=== PATIENT | male | born 1940 | race Caucasian/White ===

== ENCOUNTER 2020-05-01 21:22 | Observation (INO) ==
[2020-05-01 22:19] LABS: Basophils % 0.3 %; Eosinophils % 0.3 %; Hemoglobin 8.4 g/dL (12.9-16.9); Immature Granulocytes % 1.8 % (0-4); Lymphocytes % 19.7 %; Mean Corpuscular HGB Conc 32.3 g/dL (31.6-35.5); Mean Corpuscular Hemoglobin 32.4 pg (28.0-33.3); Mean Corpuscular Volume 100.4 fL (83.0-100.0); Mean Platelet Volume 10.2 fL (9.4-12.4); Monocytes # 0.7 K/mcL (0.0-1.3); Monocytes % 6.4 %; Neutrophils # 7.3 K/mcL (1.6-8.9); Nucleated Red Blood Cells 0.3 /100 WBC (0); Platelet Count 240 K/mcL (140-400); Red Blood Count 2.59 M/mcL (4.19-5.50); Red Cell Distribution Width 15.8 % (11.5-14.5); Segmented Neutrophils % 71.5 %; White Blood Count 10.2 K/mcL (4.3-11.1)
[2020-05-01 22:44] LABS: BUN/Creatinine Ratio 26 (6-26); Blood Urea Nitrogen 30 mg/dL (8-23); Calcium 8.9 mg/dL (8.6-10.3); Carbon Dioxide 22 mEq/L (23-29); Chloride 105 mEq/L (98-107); Glucose 117 mg/dL (70-105); Magnesium 1.7 mg/dL (1.6-2.6); Osmolality,Calculated 289 (280-300); Potassium 4.2 mEq/L (3.5-5.1); Sodium 136 mEq/L (136-145); eGFR For African Americans > 60 (> 60); eGFR For Non-African Americans > 60 (> 60)
[2020-05-01 22:56] LABS: Troponin I 0.04 ng/mL (< 0.04)
[2020-05-02] MEDS ORDERED: Naloxone 0.4 MG/ML INJ IVP PRN (00:58)
[2020-05-02] MEDS ORDERED: *HR* Promethazine 25 MG/ML VIAL IM PRN (00:58)
[2020-05-02] MEDS ORDERED: Ondansetron 4 MG/2 ML VIAL IVP PRN (00:58)
[2020-05-02] MEDS ORDERED: Perflutren Lipid Microsphere 1.3 ML in 0.9 % Sodium Chloride 8.7 ML IVP PRN (01:00)
[2020-05-02] MEDS ORDERED: Ipratropium 1 PUFF INHALER IH PRN (01:07)
[2020-05-02] MEDS ORDERED: *HR* Labetalol 20 MG/4 ML SYRINGE IVP PRN (02:10)
[2020-05-02] MEDS ORDERED: *HR* Metoprolol 5 MG/5 ML VIAL IVP ONE (02:36)
[2020-05-02] MEDS ORDERED: *HR* Heparin 5,000 UNIT/ML VIAL IVP ONE (02:40)
[2020-05-02] MEDS ORDERED: *HR* Heparin 5,000 UNIT/ML VIAL IVP PRN ×2 (02:40)
[2020-05-02] MEDS ORDERED: Heparin 25,000UNIT/250ML 1/2NS 25,000 UNIT/250 ML IV.SOLN IVC SCH (02:45)
[2020-05-02 04:52] LABS: Basophils % 0.3 %; Eosinophils % 0.2 %; Hematocrit 27.6 % (37.5-50.1); Hemoglobin 8.6 g/dL (12.9-16.9); Lymphocytes # 1.7 K/mcL (0.6-4.6); Lymphocytes % 16.4 %; Mean Corpuscular HGB Conc 31.2 g/dL (31.6-35.5); Mean Corpuscular Hemoglobin 31.4 pg (28.0-33.3); Mean Corpuscular Volume 100.7 fL (83.0-100.0); Mean Platelet Volume 11.3 fL (9.4-12.4); Monocytes # 0.7 K/mcL (0.0-1.3); Monocytes % 6.8 %; Neutrophils # 7.8 K/mcL (1.6-8.9); Nucleated Red Blood Cells 0.2 /100 WBC (0); Platelet Count 263 K/mcL (140-400); Red Blood Count 2.74 M/mcL (4.19-5.50); Red Cell Distribution Width 15.9 % (11.5-14.5); Segmented Neutrophils % 74.3 %; White Blood Count 10.5 K/mcL (4.3-11.1)
[2020-05-02 05:00] LABS: INR 1.2; Prothrombin Time 14.2 Seconds (9.4-12.1)
[2020-05-02 05:18] LABS: % Iron Saturation 10 % (20-55); Iron 27 mcg/dL (65-175); Transferrin 186 mg/dL (203-362)
[2020-05-02 05:24] LABS: Alanine Aminotransferase 13 Units/L (7-52); Albumin 3.9 g/dL (3.5-5.7); Albumin/Globulin Ratio 1.6 (1.1-2.2); Alkaline Phosphatase 79 Units/L (34-104); Aspartate Amino Transferase 28 Units/L (13-39); BUN/Creatinine Ratio 26 (6-26); Bilirubin,Total 3.9 mg/dL (0.3-1.0); Blood Urea Nitrogen 27 mg/dL (8-23); C-Reactive Protein 38 mg/L (Less than 10); Calcium 8.8 mg/dL (8.6-10.3); Carbon Dioxide 22 mEq/L (23-29); Chloride 104 mEq/L (98-107); Chol/HDL Ratio 2.5 (0-4.9); Cholesterol 100 mg/dL (< 200); Globulin 2.5 g/dL (2.4-3.5); Glucose 112 mg/dL (70-105); HDL Cholesterol 40 mg/dL (40-59); LDL Cholesterol,Calculated 44 mg/dL (< 100); Lactate Dehydrogenase 397 Units/L (140-271); Magnesium 2.1 mg/dL (1.6-2.6); Osmolality,Calculated 286 (280-300); Potassium 3.9 mEq/L (3.5-5.1); Sodium 135 mEq/L (136-145); Total Protein 6.4 g/dL (6.4-8.9); Triglycerides 78 mg/dL (< 150); Troponin I 0.04 ng/mL (< 0.04); eGFR For African Americans > 60 (> 60); eGFR For Non-African Americans > 60 (> 60)
[2020-05-02 05:34] LABS: Ferritin > 1500 ng/mL (20-250)
[2020-05-02 05:40] LABS: Folate 13.7 ng/mL (3.0-16.0)
[2020-05-02] MEDS ORDERED: *HR* Enoxaparin 80 MG/0.8 ML SYRINGE SQ SCH (06:00)
[2020-05-02] MEDS ORDERED: *HR* Enoxaparin 40 MG/0.4 ML SYRINGE SQ SCH (06:00)
[2020-05-02] MEDS: Acetaminophen 325 MG TABLET PO PRN (06:36)
[2020-05-02] MEDS: cefTRIAXone 1,000 MG in Water for inj. (sterile) 10 ML IVP SCH (08:01)
[2020-05-02] MEDS: Dexamethasone Sodium Phos/PF 10 MG/ML VIAL IVP SCH (08:02)
[2020-05-02] MEDS ORDERED: Metoprolol XL (24 HR) Succ 50 MG TAB.ER.24H PO SCH (09:00)
[2020-05-02] MEDS: *HR* Enoxaparin 80 MG/0.8 ML SYRINGE SQ SCH (10:52)
[2020-05-02] MEDS ORDERED: Metoprolol XL (24 HR) Succ 25 MG TAB.ER.24H PO ONE (12:15)
[2020-05-02] MEDS: Aspirin Enteric Coated 81 MG Tablet PO SCH (14:27)
[2020-05-02] MEDS: Famotidine 20 MG TABLET PO SCH (19:35)
[2020-05-02] MEDS ORDERED: Haloperidol Lactate 5 MG/ML VIAL IM ONE (23:00)
[2020-05-03] MEDS: *HR* Enoxaparin 80 MG/0.8 ML SYRINGE SQ SCH ×3 (00:13→20:29)
[2020-05-03] MEDS ORDERED: *HR* LORazepam 2 MG/ML VIAL IVP ONE (03:11)
[2020-05-03] MEDS ORDERED: *HR* LORazepam 2 MG/ML VIAL ONE (03:25)
[2020-05-03 05:22] LABS: Hematocrit 24.2 % (37.5-50.1); Hemoglobin 7.9 g/dL (12.9-16.9); Mean Corpuscular HGB Conc 32.6 g/dL (31.6-35.5); Mean Corpuscular Hemoglobin 32.2 pg (28.0-33.3); Mean Corpuscular Volume 98.8 fL (83.0-100.0); Mean Platelet Volume 10.5 fL (9.4-12.4); Platelet Count 286 K/mcL (140-400); Red Blood Count 2.45 M/mcL (4.19-5.50); Red Cell Distribution Width 15.9 % (11.5-14.5); White Blood Count 10.3 K/mcL (4.3-11.1)
[2020-05-03 05:40] LABS: BUN/Creatinine Ratio 30 (6-26); Blood Urea Nitrogen 34 mg/dL (8-23); Calcium 8.6 mg/dL (8.6-10.3); Carbon Dioxide 21 mEq/L (23-29); Chloride 105 mEq/L (98-107); Glucose 119 mg/dL (70-105); Magnesium 1.9 mg/dL (1.6-2.6); Osmolality,Calculated 287 (280-300); Potassium 4.5 mEq/L (3.5-5.1); Sodium 134 mEq/L (136-145); eGFR For African Americans > 60 (> 60); eGFR For Non-African Americans > 60 (> 60)
[2020-05-03] MEDS: cefTRIAXone 1,000 MG in Water for inj. (sterile) 10 ML IVP SCH (10:21)
[2020-05-03] MEDS: Dexamethasone Sodium Phos/PF 10 MG/ML VIAL IVP SCH (10:22)
[2020-05-03] MEDS: Metoprolol XL (24 HR) Succ 50 MG TAB.ER.24H PO SCH (10:22)
[2020-05-03] MEDS: Aspirin Enteric Coated 81 MG Tablet PO SCH (10:22)
[2020-05-03] MEDS: Famotidine 20 MG TABLET PO SCH (20:29)
[2020-05-03] MEDS ORDERED: Melatonin 3 MG TABLET PO PRN (21:00)
[2020-05-03] MEDS: Acetaminophen 325 MG TABLET PO PRN (21:05)
[2020-05-03] MEDS ORDERED: QUEtiapine Fumarate 25 MG TABLET PO SCH (22:45)
[2020-05-04 07:03] VITALS: BP 125/70
[2020-05-04] MEDS: cefTRIAXone 1,000 MG in Water for inj. (sterile) 10 ML IVP SCH (09:26)
[2020-05-04] MEDS: *HR* Enoxaparin 80 MG/0.8 ML SYRINGE SQ SCH ×2 (09:26→10:48)
[2020-05-04] MEDS: Metoprolol XL (24 HR) Succ 50 MG TAB.ER.24H PO SCH (09:27)
[2020-05-04] MEDS: Dexamethasone Sodium Phos/PF 10 MG/ML VIAL IVP SCH (09:27)
[2020-05-04] MEDS: Aspirin Enteric Coated 81 MG Tablet PO SCH (09:27)
== END 2020-05-04 12:59 | disposition home health service (06) ==
LOC: 2NENU 21:22 → EMEROOARM 21:22 → 2NENU 05-02 01:20 → SUATTDRO 05-02 01:26
PROVIDERS: ADMIT Internal Medicine; ATTEND Internal Medicine

== ENCOUNTER 2020-05-15 11:45 | Inpatient (IN) ==
[2020-05-15 12:36] LABS: Basophils % 0.2 %; Eosinophils # 0.2 K/mcL (0.0-0.6); Eosinophils % 0.7 %; Hematocrit 19.1 % (37.5-50.1); Hemoglobin 6.3 g/dL (12.9-16.9); Immature Granulocytes % 5.6 % (0-4); Lymphocytes % 12.5 %; Mean Corpuscular Hemoglobin 32.8 pg (28.0-33.3); Mean Corpuscular Volume 99.5 fL (83.0-100.0); Mean Platelet Volume 9.7 fL (9.4-12.4); Monocytes # 1.3 K/mcL (0.0-1.3); Monocytes % 5.3 %; Nucleated Red Blood Cells 1.2 /100 WBC (0); Platelet Count 515 K/mcL (140-400); Red Blood Count 1.92 M/mcL (4.19-5.50); Red Cell Distribution Width 20.5 % (11.5-14.5); Segmented Neutrophils % 75.7 %; White Blood Count 24.3 K/mcL (4.3-11.1)
[2020-05-15 12:40] LABS: INR 1.2; Prothrombin Time 13.4 Seconds (9.4-12.1)
[2020-05-15 12:42] LABS: Activated Partial Thrombo Time 23.6 Seconds (26.0-36.0)
[2020-05-15 12:43] LABS: Basophils # 0.1 K/mcL (0.0-0.2); Neutrophils # 18.4 K/mcL (1.6-8.9)
[2020-05-15 13:17] LABS: Alanine Aminotransferase 15 Units/L (7-52); Albumin 3.3 g/dL (3.5-5.7); Albumin/Globulin Ratio 1.3 (1.1-2.2); Alkaline Phosphatase 100 Units/L (34-104); Aspartate Amino Transferase 30 Units/L (13-39); BUN/Creatinine Ratio 16 (6-26); Bilirubin,Direct 0.7 mg/dL (0.0-0.2); Bilirubin,Indirect 2.8 mg/dL (0.0-1.0); Bilirubin,Total 3.5 mg/dL (0.3-1.0); Blood Urea Nitrogen 21 mg/dL (8-23); C-Reactive Protein 18 mg/L (Less than 10); Calcium 8.6 mg/dL (8.6-10.3); Carbon Dioxide 20 mEq/L (23-29); Chloride 104 mEq/L (98-107); Ferritin 1291 ng/mL (20-250); Globulin 2.6 g/dL (2.4-3.5); Glucose 111 mg/dL (70-105); Magnesium 2.2 mg/dL (1.6-2.6); Osmolality,Calculated 284 (280-300); Phosphorous 3.9 mg/dL (2.7-4.5); Potassium 4.8 mEq/L (3.5-5.1); Sodium 135 mEq/L (136-145); Total Protein 5.9 g/dL (6.4-8.9); Troponin I 0.06 ng/mL (< 0.04); eGFR For African Americans > 60 (> 60); eGFR For Non-African Americans 51 (> 60)
[2020-05-15] MEDS ORDERED: Azithromycin 500 MG in 0.9 % Sodium Chloride 250 ML IVPB ONE (13:38)
[2020-05-15] MEDS ORDERED: Cefepime HCl 2,000 MG in Water for inj. (sterile) 20 ML IVP STA (13:38)
[2020-05-15] MEDS ORDERED: Vancomycin 1,250 MG/262.5 ML IV.SOLN IVPB ONE (13:38)
[2020-05-15 13:39] LABS: Platelet Estimate Increased (Normal)
[2020-05-15 13:40] LABS: Anisocytosis 1+ (Not Present)
[2020-05-15 13:41] LABS: Hypochromasia Present (Not Present); Poikilocytosis 1+ (Not Present); Polychromasia 1+ (Not Present)
[2020-05-15] MEDS ORDERED: 0.9 % Sodium Chloride 1,000 ML IVC ONE (13:56)
[2020-05-15 13:59] LABS: Adenovirus Not Detected (Not Detect); Coronavirus 229E Not Detected (Not Detect); Coronavirus HKU1 Not Detected (Not Detect); Coronavirus NL63 Not Detected (Not Detect); Coronavirus OC43 Not Detected (Not Detect)
[2020-05-15 14:00] LABS: Bordetella Pertussis Not Detected (Not Detect); Chlamydophila pneumoniae Not Detected (Not Detect); Human Metapneumovirus Not Detected (Not Detect); Human Rhinovirus/Enterovirus Not Detected (Not Detect); Influenza A Subtype 2009 H1 Not Detected (Not Detect); Influenza B Not Detected (Not Detect); Mycoplasma pneumoniae Not Detected (Not Detect); Parainfluenza Virus 1 Not Detected (Not Detect); Parainfluenza Virus 2 Not Detected (Not Detect); Parainfluenza Virus 3 Not Detected (Not Detect); Parainfluenza Virus 4 Not Detected (Not Detect); Respiratory Syncytial Virus Not Detected (Not Detect); SARS-CoV-2 DETECTED (Not Detect)
[2020-05-15] MEDS ORDERED: *HR* LORazepam 2 MG/ML VIAL IM STA (15:27)
[2020-05-15] MEDS ORDERED: *HR* LORazepam 2 MG/ML VIAL ONE (15:37)
[2020-05-15] MEDS ORDERED: Haloperidol Lactate 5 MG/ML VIAL ONE (15:38)
[2020-05-15] MEDS ORDERED: *HR* LORazepam 2 MG/ML VIAL IVP ONE (15:44)
[2020-05-15] MEDS ORDERED: Haloperidol Lactate 5 MG/ML VIAL IVP ONE (15:45)
[2020-05-15] MEDS ORDERED: Ondansetron 4 MG/2 ML VIAL IVP PRN (17:20)
[2020-05-15] MEDS: Dexmedetomidine HCl 400 MCG/100 ML MLS IVC SCH (17:35)
[2020-05-15] MEDS ORDERED: 0.9 % Sodium Chloride 500 ML IVC ONE (19:42)
[2020-05-15] MEDS ORDERED: 0.9 % Sodium Chloride 500 ML ONE (19:44)
[2020-05-15] MEDS: QUEtiapine Fumarate 25 MG TABLET PO SCH (21:00)
[2020-05-16 05:42] LABS: Basophils # 0.1 K/mcL (0.0-0.2); Basophils % 0.3 %; Eosinophils # 0.1 K/mcL (0.0-0.6); Eosinophils % 0.7 %; Hematocrit 23.5 % (37.5-50.1); Hemoglobin 7.7 g/dL (12.9-16.9); Immature Granulocytes % 4.4 % (0-4); Lymphocytes # 1.9 K/mcL (0.6-4.6); Mean Corpuscular HGB Conc 32.8 g/dL (31.6-35.5); Mean Corpuscular Hemoglobin 34.1 pg (28.0-33.3); Mean Platelet Volume 10.1 fL (9.4-12.4); Monocytes % 5.4 %; Neutrophils # 15.1 K/mcL (1.6-8.9); Nucleated Red Blood Cells 1.2 /100 WBC (0); Platelet Count 287 K/mcL (140-400); Red Blood Count 2.26 M/mcL (4.19-5.50); Red Cell Distribution Width 23.6 % (11.5-14.5); Segmented Neutrophils % 79.2 %; White Blood Count 19.1 K/mcL (4.3-11.1)
[2020-05-16 08:27] LABS: BUN/Creatinine Ratio 16 (6-26); Blood Urea Nitrogen 22 mg/dL (8-23); Calcium 8.5 mg/dL (8.6-10.3); Carbon Dioxide 20 mEq/L (23-29); Chloride 108 mEq/L (98-107); Glucose 106 mg/dL (70-105); Magnesium 2.1 mg/dL (1.6-2.6); Osmolality,Calculated 290 (280-300); Potassium 4.4 mEq/L (3.5-5.1); Sodium 138 mEq/L (136-145); eGFR For African Americans > 60 (> 60); eGFR For Non-African Americans 50 (> 60)
[2020-05-16] MEDS: Acetaminophen 325 MG TABLET PO PRN ×2 (11:43→20:45)
[2020-05-16] MEDS: QUEtiapine Fumarate 25 MG TABLET PO SCH (20:45)
[2020-05-16] MEDS: Dexmedetomidine HCl 400 MCG/100 ML MLS IVC SCH (23:58)
[2020-05-17 01:55] LABS: Hematocrit 19.3 % (37.5-50.1); Hemoglobin 6.6 g/dL (12.9-16.9); Mean Corpuscular HGB Conc 34.2 g/dL (31.6-35.5); Mean Corpuscular Hemoglobin 34.7 pg (28.0-33.3); Mean Corpuscular Volume 101.6 fL (83.0-100.0); Mean Platelet Volume 9.4 fL (9.4-12.4); Platelet Count 376 K/mcL (140-400); Red Cell Distribution Width 23.4 % (11.5-14.5); White Blood Count 17.1 K/mcL (4.3-11.1)
[2020-05-17 02:10] LABS: Albumin 2.6 g/dL (3.5-5.7); Albumin/Globulin Ratio 1.2 (1.1-2.2); Bilirubin,Direct 0.7 mg/dL (0.0-0.2); Bilirubin,Indirect 2.7 mg/dL (0.0-1.0); Bilirubin,Total 3.4 mg/dL (0.3-1.0); Calcium 7.9 mg/dL (8.6-10.3); Globulin 2.1 g/dL (2.4-3.5); Potassium 3.7 mEq/L (3.5-5.1); Total Protein 4.7 g/dL (6.4-8.9)
[2020-05-17] MEDS ORDERED: 0.9 % Sodium Chloride 250 ML ONE (10:01)
[2020-05-17] MEDS: Acetaminophen 325 MG TABLET PO PRN (14:00)
[2020-05-17] MEDS: haloperidoL 1 MG TABLET PO SCH ×3 (14:17→20:05)
[2020-05-17] MEDS: Pantoprazole 40 MG VIAL IVP SCH (17:45)
[2020-05-17] MEDS: Metoprolol XL (24 HR) Succ 50 MG TAB.ER.24H PO SCH (20:05)
[2020-05-17] MEDS: QUEtiapine Fumarate 25 MG TABLET PO SCH (20:05)
[2020-05-17 20:41] LABS: Immature Reticulocyte % 53.4 % (11.0-38.0); Retculocyte # 0.18 M/mcL (0.05-0.10); Reticulocyte % 9.9 % (1.6-2.8)
[2020-05-18] MEDS: Pantoprazole 40 MG VIAL IVP SCH (04:54)
[2020-05-18 06:00] LABS: INR 1.2; Prothrombin Time 14.2 Seconds (9.4-12.1)
[2020-05-18 06:21] LABS: Hematocrit 27.9 % (37.5-50.1); Hemoglobin 9.1 g/dL (12.9-16.9); Mean Corpuscular HGB Conc 32.6 g/dL (31.6-35.5); Mean Corpuscular Hemoglobin 34.9 pg (28.0-33.3); Mean Corpuscular Volume 106.9 fL (83.0-100.0); Mean Platelet Volume 9.6 fL (9.4-12.4); Platelet Count 267 K/mcL (140-400); Red Blood Count 2.61 M/mcL (4.19-5.50); Red Cell Distribution Width 25.5 % (11.5-14.5); White Blood Count 12.7 K/mcL (4.3-11.1)
[2020-05-18] MEDS: Metoprolol XL (24 HR) Succ 50 MG TAB.ER.24H PO SCH (08:34)
[2020-05-18] MEDS: haloperidoL 1 MG TABLET PO SCH ×4 (08:34→20:31)
[2020-05-18 09:46] LABS: Alanine Aminotransferase 25 Units/L (7-52); Albumin 3.5 g/dL (3.5-5.7); Albumin/Globulin Ratio 1.3 (1.1-2.2); Alkaline Phosphatase 97 Units/L (34-104); Aspartate Amino Transferase 70 Units/L (13-39); BUN/Creatinine Ratio 13 (6-26); Bilirubin,Direct 0.6 mg/dL (0.0-0.2); Bilirubin,Indirect 3.6 mg/dL (0.0-1.0); Bilirubin,Total 4.2 mg/dL (0.3-1.0); Blood Urea Nitrogen 17 mg/dL (8-23); Calcium 8.5 mg/dL (8.6-10.3); Carbon Dioxide 20 mEq/L (23-29); Chloride 109 mEq/L (98-107); Globulin 2.8 g/dL (2.4-3.5); Glucose 110 mg/dL (70-105); Magnesium 2.3 mg/dL (1.6-2.6); Osmolality,Calculated 284 (280-300); Phosphorous 3.4 mg/dL (2.7-4.5); Potassium 5.8 mEq/L (3.5-5.1); Sodium 136 mEq/L (136-145); Total Protein 6.3 g/dL (6.4-8.9); eGFR For African Americans > 60 (> 60); eGFR For Non-African Americans 55 (> 60)
[2020-05-18 15:56] LABS: Potassium 4.9 mEq/L (3.5-5.1)
[2020-05-18] MEDS ORDERED: predniSONE 20 MG TABLET PO ONE (18:00)
[2020-05-18] MEDS: QUEtiapine Fumarate 25 MG TABLET PO SCH (20:31)
[2020-05-18 20:35] LABS: Retculocyte # 0.24 M/mcL (0.05-0.10); Reticulocyte % 9.1 % (1.6-2.8)
[2020-05-19 05:35] LABS: Hemoglobin 9.5 g/dL (12.9-16.9); Mean Corpuscular HGB Conc 32.8 g/dL (31.6-35.5); Mean Corpuscular Hemoglobin 33.9 pg (28.0-33.3); Mean Corpuscular Volume 103.6 fL (83.0-100.0); Mean Platelet Volume 9.4 fL (9.4-12.4); Platelet Count 323 K/mcL (140-400); Red Cell Distribution Width 25.2 % (11.5-14.5); White Blood Count 10.6 K/mcL (4.3-11.1)
[2020-05-19 05:56] LABS: BUN/Creatinine Ratio 20 (6-26); Blood Urea Nitrogen 21 mg/dL (8-23); Calcium 8.5 mg/dL (8.6-10.3); Carbon Dioxide 20 mEq/L (23-29); Chloride 110 mEq/L (98-107); Glucose 147 mg/dL (70-105); Magnesium 2.2 mg/dL (1.6-2.6); Osmolality,Calculated 292 (280-300); Potassium 4.8 mEq/L (3.5-5.1); Sodium 138 mEq/L (136-145); eGFR For African Americans > 60 (> 60); eGFR For Non-African Americans > 60 (> 60)
[2020-05-19] MEDS ORDERED: *HR* Enoxaparin 40 MG/0.4 ML SYRINGE SQ SCH (06:00)
[2020-05-19] MEDS: Metoprolol XL (24 HR) Succ 50 MG TAB.ER.24H PO SCH (08:14)
[2020-05-19] MEDS: haloperidoL 1 MG TABLET PO SCH ×3 (08:14→17:22)
[2020-05-19] MEDS ORDERED: predniSONE 20 MG TABLET PO SCH (09:00)
[2020-05-19 14:56] LABS: Basophils % 0.1 %; Hematocrit 32.2 % (37.5-50.1); Hemoglobin 10.1 g/dL (12.9-16.9); Immature Granulocytes % 0.9 % (0-4); Immature Reticulocyte % 28.7 % (11.0-38.0); Lymphocytes % 5.5 %; Mean Corpuscular HGB Conc 31.4 g/dL (31.6-35.5); Mean Corpuscular Hemoglobin 32.8 pg (28.0-33.3); Mean Corpuscular Volume 104.5 fL (83.0-100.0); Mean Platelet Volume 9.7 fL (9.4-12.4); Monocytes # 0.4 K/mcL (0.0-1.3); Monocytes % 2.2 %; Neutrophils # 16.5 K/mcL (1.6-8.9); Platelet Count 320 K/mcL (140-400); Red Blood Count 3.08 M/mcL (4.19-5.50); Red Cell Distribution Width 24.8 % (11.5-14.5); Retculocyte # 0.26 M/mcL (0.05-0.10); Reticulocyte % 8.5 % (1.6-2.8); Segmented Neutrophils % 91.3 %
[2020-05-19 15:00] LABS: White Blood Count 18.1 K/mcL (4.3-11.1)
[2020-05-19 15:20] LABS: Anisocytosis 2+ (Not Present); Platelet Estimate Normal (Normal)
[2020-05-19 17:40] VITALS: BP 106/83
[2020-05-19 17:55] LABS: Alanine Aminotransferase 23 Units/L (7-52); Albumin 3.3 g/dL (3.5-5.7); Albumin/Globulin Ratio 1.3 (1.1-2.2); Alkaline Phosphatase 96 Units/L (34-104); Aspartate Amino Transferase 44 Units/L (13-39); BUN/Creatinine Ratio 23 (6-26); Bilirubin,Total 3.1 mg/dL (0.3-1.0); Blood Urea Nitrogen 25 mg/dL (8-23); Calcium 8.8 mg/dL (8.6-10.3); Carbon Dioxide 22 mEq/L (23-29); Chloride 107 mEq/L (98-107); Globulin 2.5 g/dL (2.4-3.5); Glucose 136 mg/dL (70-105); Lactate Dehydrogenase 417 Units/L (140-271); Osmolality,Calculated 290 (280-300); Potassium 4.3 mEq/L (3.5-5.1); Sodium 137 mEq/L (136-145); Total Protein 5.8 g/dL (6.4-8.9); eGFR For African Americans > 60 (> 60); eGFR For Non-African Americans > 60 (> 60)
== END 2020-05-19 20:24 | disposition home or self-care (01) | DRG 177 ==
LOC: 2NENU 11:45 → EMEROOARM 11:45 → SUATTDRO 15:29 → 2NENU 17:31
PROVIDERS: ADMIT Internal Medicine; ATTEND Internal Medicine

== ENCOUNTER 2020-06-01 23:59 | Observation (INO) ==
[2020-06-02 01:48] LABS: Basophils % 0.2 %; Eosinophils % 0.2 %; Hematocrit 32.5 % (37.5-50.1); Immature Granulocytes % 1.2 % (0-4); Lymphocytes # 2.4 K/mcL (0.6-4.6); Mean Corpuscular HGB Conc 30.8 g/dL (31.6-35.5); Mean Corpuscular Hemoglobin 31.6 pg (28.0-33.3); Mean Corpuscular Volume 102.8 fL (83.0-100.0); Mean Platelet Volume 9.2 fL (9.4-12.4); Monocytes # 1.2 K/mcL (0.0-1.3); Monocytes % 7.2 %; Nucleated Red Blood Cells 0.1 /100 WBC (0); Platelet Count 255 K/mcL (140-400); Red Blood Count 3.16 M/mcL (4.19-5.50); Red Cell Distribution Width 21.4 % (11.5-14.5); Segmented Neutrophils % 77.2 %; White Blood Count 16.9 K/mcL (4.3-11.1)
[2020-06-02 01:54] LABS: Bilirubin,Urine Negative (Negative); Blood,Urine Negative (Negative); Clarity,Urine Clear (Clear); Color,Urine Yellow (Yellow); Glucose,Urine (UA) 70 mg/dL (Normal); Hyaline Casts,Urine Few per lpf (None Seen); Ketones,Urine Negative (Negative); Leukocyte Esterase,Urine Negative (Negative); Mucus,Urine Few per lpf (None-Few); Nitrite,Urine Negative (Negative); Protein,Urine 30 mg/dL (Neg-Trace); RBC,Urine 0-3 per hpf (0-3); Squamous Epithelial Cell,Urine Few per hpf (None-Few); Urobilinogen,Urine Normal (Normal); WBC,Urine 0-3 per hpf (0-3)
[2020-06-02 02:03] LABS: Amphetamine Screen,Urine Negative ng/mL (Cutoff=1000); Barbiturate Screen,Urine Negative ng/mL (Cutoff=200); Benzodiazepines Screen,Urine Negative ng/mL (Cutoff=200); Cannabinoid Screen,Urine Negative ng/mL (Cutoff = 50); Cocaine Screen,Urine Negative ng/mL (Cutoff= 300); Opiate Screen,Urine Negative ng/mL (Cutoff=300); Phencyclidine Screen,Urine Negative ng/mL (Cutoff=25)
[2020-06-02 02:09] LABS: Alanine Aminotransferase 40 Units/L (7-52); Albumin/Globulin Ratio 1.5 (1.1-2.2); Alkaline Phosphatase 90 Units/L (34-104); Aspartate Amino Transferase 25 Units/L (13-39); BUN/Creatinine Ratio 23 (6-26); Bilirubin,Direct 0.4 mg/dL (0.0-0.2); Bilirubin,Indirect 1.9 mg/dL (0.0-1.0); Bilirubin,Total 2.3 mg/dL (0.3-1.0); Blood Urea Nitrogen 22 mg/dL (8-23); Carbon Dioxide 28 mEq/L (23-29); Chloride 110 mEq/L (98-107); Glucose 85 mg/dL (70-105); Osmolality,Calculated 295 (280-300); Potassium 4.3 mEq/L (3.5-5.1); Sodium 141 mEq/L (136-145); eGFR For African Americans > 60 (> 60); eGFR For Non-African Americans > 60 (> 60)
[2020-06-02] MEDS ORDERED: Ondansetron ODT 4 MG TAB.RAPDIS SL PRN (04:19)
[2020-06-02] MEDS ORDERED: Acetaminophen 325 MG TABLET PO PRN (04:19)
[2020-06-02] MEDS ORDERED: Naloxone 0.4 MG/ML INJ IVP PRN (04:19)
[2020-06-02] MEDS: 0.9 % Sodium Chloride 1,000 ML IVC SCH (05:22)
[2020-06-02] MEDS ORDERED: Haloperidol Lactate 5 MG/ML VIAL IVP ONE (06:35)
[2020-06-02] MEDS ORDERED: Albuterol 2.5 MG/3 ML NEBULIZER IH PRN (15:45)
[2020-06-02] MEDS ORDERED: Haloperidol Lactate 5 MG/ML VIAL IM PRN (17:51)
[2020-06-02] MEDS ORDERED: Famotidine 20 MG TABLET PO SCH (21:00)
[2020-06-02] MEDS ORDERED: QUEtiapine Fumarate 25 MG TABLET PO SCH (21:00)
[2020-06-03] MEDS: 0.9 % Sodium Chloride 1,000 ML IVC SCH (03:06)
[2020-06-03 05:51] LABS: Prothrombin Time 11.8 Seconds (9.4-12.1)
[2020-06-03 06:02] LABS: BUN/Creatinine Ratio 21 (6-26); Blood Urea Nitrogen 20 mg/dL (8-23); Calcium 8.3 mg/dL (8.6-10.3); Carbon Dioxide 24 mEq/L (23-29); Chloride 107 mEq/L (98-107); Glucose 76 mg/dL (70-105); Osmolality,Calculated 285 (280-300); Potassium 4.6 mEq/L (3.5-5.1); Sodium 137 mEq/L (136-145); eGFR For African Americans > 60 (> 60); eGFR For Non-African Americans > 60 (> 60)
[2020-06-03 07:25] LABS: Basophils % 0.3 %; Eosinophils # 0.1 K/mcL (0.0-0.6); Hematocrit 33.9 % (37.5-50.1); Hemoglobin 10.4 g/dL (12.9-16.9); Immature Granulocytes % 0.8 % (0-4); Lymphocytes # 1.5 K/mcL (0.6-4.6); Lymphocytes % 12.3 %; Mean Corpuscular HGB Conc 30.7 g/dL (31.6-35.5); Mean Corpuscular Hemoglobin 32.1 pg (28.0-33.3); Mean Corpuscular Volume 104.6 fL (83.0-100.0); Mean Platelet Volume 10.8 fL (9.4-12.4); Neutrophils # 9.3 K/mcL (1.6-8.9); Nucleated Red Blood Cells 0.2 /100 WBC (0); Platelet Count 253 K/mcL (140-400); Red Blood Count 3.24 M/mcL (4.19-5.50); Red Cell Distribution Width 21.4 % (11.5-14.5); Segmented Neutrophils % 77.6 %
[2020-06-03] MEDS ORDERED: Aspirin Enteric Coated 81 MG Tablet PO SCH (09:00)
[2020-06-03] MEDS ORDERED: Metoprolol XL (24 HR) Succ 50 MG TAB.ER.24H PO SCH (09:00)
[2020-06-03] MEDS ORDERED: predniSONE 20 MG TABLET PO ONE (11:25)
[2020-06-03 11:47] VITALS: BP 113/72
== END 2020-06-03 13:58 | disposition home health service (06) ==
LOC: 2ANU 23:59 → EMEROOARM 23:59 → SUATTDRO 06-02 04:18 → 2ANU 06-02 04:47
PROVIDERS: ADMIT Student in an Organized Health Care Education/Training Program; ATTEND Family Medicine